=== PATIENT | male | born 1950 | race Caucasian/White ===

== ENCOUNTER 2017-04-24 12:02 | Day surgery (SDC) | payer BC ==
--- OUTSIDE RECORDS SUMMARY | 2017-04-24 12:12 | XMS REPORT | Continuity of Care Document ---
:1950 Author Organization [facility] ([facility]) Address [address] [place] [address] Phone [phone] Care Team Providers Name Role Phone Omar Bnag Primary Care Provider [phone] Source Comments This disclosure is being made pursuant to the Care Everywhere program, applicable federal and state laws, and may not contain all informaitonavailable regarding this patient.[facility] ([facility]) Active Allergies and Adverse Reactions Allergen Noted Date Severity Reactions Comments No Known Allergies 10/23/2011 NO REACTION Current Medications Prescription Sig. Disp. Refills Start Date End Date Status alfuzosin 10 mg XR Take 1 Tab by mouth 30 Tab 11 10/22/2012 Active tablet daily. Indications: BENIGN PROSTATIC HYPERTROPHY Active Problems Problem Noted Date BPH (benign prostatic hyperplasia) 10/22/2012 Social History Tobacco Use Types Packs/Day Years Used Date Never Smoker Smokeless Tobacco: Never Used Alcohol Use Drinks/Week oz/Week Comments Yes Rare alcohol intake. Last Filed Vital Signs Vital Sign Reading Time Taken Blood Pressure 128/75 10/22/2012 11:30 AM [employer]IKE ON MACHINE OPERATOR Pulse 76 10/22/2012 11:30 AM STRIKE ON MACHINE OPERATOR Temperature 36.6 C (97.9 F) 10/22/2012 11:30 AM STRIKE ON MACHINE OPERATOR Respiratory Rate 18 10/22/2012 11:30 AM STRIKE ON MACHINE OPERATOR Height 1.765 m (5' 9.5") 10/22/2012 11:30 AM STRIKE ON MACHINE OPERATOR Weight 83.462 kg (184 lb) 10/22/2012 11:30 AM STRIKE ON MACHINE OPERATOR Body Mass Index 26.79 10/22/2012 11:30 AM STRIKE ON MACHINE OPERATOR Oxygen Saturation 97% 12/26/2011 10:08 AM STRIKE ON MACHINE OPERATOR Plan of Care Health Maintenance Due Date Last Done Comments HCV Screening 1950 Hepatitis B Vaccine (1 of 3 - Primary Series) 1950 Tdap Vaccine 1963 Lipid Disorder Screening 1970 Td Vaccine 1970 Colonoscopy 2002 Prostate Cancer Screening 2002 Zoster Vaccine 2012 Influenza Vaccine: Seasonal (#1) 06/18/2016 Results from Last 3 Months Not on file
--- OUTSIDE RECORDS SUMMARY | 2017-04-24 12:12 | XMS REPORT | Continuity of Care Document ---
:1950 Author Organization [facility] [place] [address] Phone [phone] Care Team Providers Name Role Phone Omar Bang Primary Care Provider [phone] Active Allergies and Adverse Reactions Not on File Current Medications Always verify current medications with the patient because some medications mayno longer be current as of this document. Not on file Active Problems Not on file Social History Tobacco Use Types Packs/Day Years Used Date Never Assessed Plan of Care Health Maintenance Due Date Last Done Comments [facility] Vaccines (1 - Tdap) [facility] Lipid Disorder Screening 1987 [facility] Colon Cancer Screening 2002 [facility] Zoster (#1) 2012 [facility] Influenza 06/18/2017 Results from Last 3 Months Not on file
[2017-04-24] MEDS ORDERED: LIDOCAINE HCL 10 APPL CARTRIDGE TP ONE (13:15)
--- NOTE | 2017-04-24 13:27 | OR ---
Operative Report - Dictated Report Narrative: Location: Main OR Anesthesia: Local Preoperative Diagnosis: BPH with obstruction Postoperative Diagnosis: Same Procedure: #1 flexible cystoscopy with washing for cytology Indications: 66-year-old male with obstructive urinary symptomatology on Uroxatral and oxybutynin. Presents for cystoscopy to assess for degree of obstructive change confirm that this is BPH and consider additional options i.e. Proscar versus TURP. Description: Consent obtained. Placed in the supine position. Prepped and draped. Time-out taken . Lidocaine jelly used to anesthetize urethra. Scope inserted into the urethra and navigated to the bladder with ease. No tumors stones or suspicious lesions. Does have trabeculation with a few widemouthed shallow diverticula consistent with some high-pressure change but all in all bladder looked pretty good with no evidence permanent damage. Ureters normal in number and position. On retroflexion does have an intravesical prostate but fairly broad-based. Lateral lobes do look obstructing. No distinct median lobe. Washing was obtained for cytology. Prostate was medium to approaching long with significant bilobar hypertrophy again looks obstructing. Normal urethra EBL: 0 Specimen: Washing for cytology Condition: tolerate procedure Important Findings: BPH with obstruction without evidence permanent damage. He will continue Uroxatral and oxybutynin. I will see him in 3 months for flow/ BVI. We will think about Proscar. He is not bad enough for he wishes to consider TURP at this time but anatomy consistent and should not be a problem when he decides to proceed.
[2017-04-24 13:39] VITALS: BP 124/75
== END 2017-04-24 12:03 | disposition home or self-care (01) ==
LOC: AMB 12:02
PROVIDERS: ATTEND Urology
PROC: 3E1K88X Irrigation of Genitourinary Tract using Irrigating Substance, Via Natural or Artificial Opening Endoscopic, Diagnostic (ICD-10-PCS; 2017-04-24)
PROC: 0TJB8ZZ Inspection of Bladder, Via Natural or Artificial Opening Endoscopic (ICD-10-PCS; principal; 2017-04-24 13:00)
DX: N40.1 Benign prostatic hyperplasia with lower urinary tract symptoms (principal); N13.8 Other obstructive and reflux uropathy; Z68.27 Body mass index [BMI] 27.0-27.9, adult